=== PATIENT | female | born 1960 | race Caucasian/White ===

== ENCOUNTER 2018-09-28 07:10 | Day surgery (SDC) | payer MEDICAID ==
[~2018-09-28] VITALS: Ht 165.1 cm; Wt 61.7 kg
[2018-09-28] MEDS ORDERED: MIDAZOLAM 2 MG/2 ML VIAL ONE ×2 (09:52→10:28)
[2018-09-28] MEDS ORDERED: fentaNYL 0.05 MG/ML VIAL ONE (09:52)
[2018-09-28] MEDS ORDERED: LIDOCAINE 2% 100 MG/5 ML UJET TP ONE (09:53)
[2018-09-28] MEDS ORDERED: MIDAZOLAM 2 MG/2 ML VIAL IVP ONE (12:05)
[2018-09-28] MEDS ORDERED: fentaNYL 0.05 MG/ML VIAL IVP ONE (12:05)
== END 2018-09-28 11:35 | disposition home or self-care (01) ==
LOC: MDS 07:10 → MMU 07:13 → MDS 11:35
PROVIDERS: ATTEND Internal Medicine Gastroenterology
DX: K44.9 Diaphragmatic hernia without obstruction or gangrene (principal); K29.90 Gastroduodenitis, unspecified, without bleeding; K20.9 Esophagitis, unspecified; F17.210 Nicotine dependence, cigarettes, uncomplicated; R14.0 Abdominal distension (gaseous); Z98.890 Other specified postprocedural states; Z80.0 Family history of malignant neoplasm of digestive organs
CPT/HCPCS: 36415; 43239; 45378; 86677; J2250; J3010